=== PATIENT | male | born 1950 | race Caucasian/White ===

== ENCOUNTER → 2017-06-29 11:45 | Outpatient (CLI) | payer MEDICARE, BC ==
[~2017-06-29] VITALS: Ht 185.4 cm; Wt 88.6 kg
--- NOTE | ~2017-06-29 | HEMODYNAMI ---
PATIENT:LISA MASTERSON MEDICAL RECORD: [id number] : 48 LOCATION:[facility] ADMISSION DATE: 06/29/17 Generatedon:06/29/201715:27 Patient name: LISA MASTERSON Patient #: [id number] SSN: : 1950 Date of study: 06/29/2017 Page: Of Hemodynamic Procedure Report Patient Data Patient Demographics Procedure consent was obtained First Name: LISA Gender: Male Last Name: ALEJA : 1950 Middle Initial: H Age: 67 year(s) Patient #: [id number] Race: Unknown Additional ID: [id number] Contact details Address: [place] [address] State: [place] City: [place] Zip code: [address] Past Medical History Allergies Allergen Reaction Date Comments Reported Other allergy 06/29/2017 imdur Admission Admission Data Admission Date: 06/29/2017 Admission Time: 11:45 Lab Results Lab Result Date: 06/29/2017 Lab Result Time: 0:00 Biochemistry Name Units Result Min Max BUN mg/dl 8 --(*---)-- 7 18 Creatinine mg/dl 0.7 --(*---)-- 0.6 1.3 CBC Name Units Result Min Max Hemoglobin g/dl 14.2 --(*---)-- 13.5 17.5 Procedure Procedure Types Cath Procedure Diagnostic Procedure [facility] w/Coronaries FFR/IVUS Intra-Coronary IVUS Initial PCI Procedure PTCA PTCA Initial Miscellaneous Procedures Moderate Sedation up to 45 minutes Procedure Description Procedure Date Procedure Date: 06/29/2017 Procedure Start Time: 14:38 Procedure End Time: 15:27 Procedure Staff Name Function Quinn Berrios MD Performing Physician Eva Dejesus RT Monitor Kimberly Dang RT Scrub Omid Rod RN Nurse Fabienne Aguilar RN Nurse Eloise Chaparro RT Monitor Hiram Alfonso RT Monitor Procedure Data Cath Procedure Fluoroscopy Diagnostic fluoroscopy Total fluoroscopy Time: time: 10.8 min 10.8 min Diagnostic fluoroscopy Total fluoroscopy dose: dose: 1812 mGy 1812 mGy Contrast Material Contrast Material Type Amount (ml) Isovue 300 82 Entry Location Entry Primary Successful Side Size Upsize Upsize Entry Closure Anderson ccessful Closure Location (Fr) 1 (Fr) 2 (Fr) Remarks Device Remarks Radial Right 6 Fr Mechanical tr band artery Short Compression Estimated blood loss: 10 ml Diagnostic catheters Device Type Used For End Catheter Placement Terumo 5Fr Trae 110cm Multi-vessel catheter Angiography Procedure Complications No complications Procedure Medications Medication Administration Route Dosage Oxygen NC 2 l/min Lidocaine 2% added to field 20 Heparin Flush Bag added to field 2 bags (1000units/500ml NS) 0.9% NaCl I.V. 100 ml/hr Versed I.V. 1 mg Fentanyl I.V. 50 mcg Versed I.V. 1 mg Fentanyl I.V. 50 mcg Radial Cocktail I.A. 1 syringe (Verapomil 2mg/Nitro 400mcg/Heparin 1500units) Heparin Bolus I.V. 7000 units Versed I.V. 1 mg Versed I.V. 1 mg Heparin Bolus I.V. 2000 units Fentanyl I.V. 50 mcg Hemodynamics Rest HGB: 14.2 (g/dl) Heart Rate: 56 (bpm) Pressure Samples Time Site Value (mmHg) Purpose Heart Use Rate(bpm) 14:42 LV 144/16,32 Snapshot 77 14:43 AO 95/32(78) Pullback 95 Gradients Valve Time Site Site 2 Mean SEP/DFP Peak To Heart Use 1 (mmHg) (sec/min) Peak Rate (mmHg) (bpm) Aortic 14:43 LV AO 7 4 95 95/32(78) Calculations Valve P-P Mean Valve Index Valve Source Name Gradient Area Flow (cm2) Aortic 7 7 Snapshots Pre Cath Intra NCS Post Cath Vital Signs Time Heart Resp SPO2 etCO2 NIBP (mmHg) Rhythm Pain Sedation Rate (ipm) (%) (mmHg) Status Level (bpm) 14:24:59 58 15 100 35 133/66(106) NSR 0 (11) 10(A) , No pain 14:29:15 61 22 98 32.4 132/74(99) NSR 0 (11) 10(A) , No pain 14:33:33 64 14 98 34.6 129/69(105) NSR 0 (11) 9(A) , No pain 14:37:43 69 14 98 18.7 127/74(99) NSR 0 (11) 9(A) , No pain 14:41:59 68 14 99 28.5 133/69(92) NSR 0 (11) 9(A) , No pain 14:46:11 72 14 97 32.2 125/69(91) NSR 0 (11) 9(A) , No pain 14:50:25 70 16 97 30.7 112/72(92) NSR 0 (11) 9(A) , No pain 14:54:43 66 14 99 31.5 126/67(93) NSR 0 (11) 9(A) , No pain 14:58:59 72 15 98 31.5 126/68(104) NSR 0 (11) 9(A) , No pain 15:03:17 69 16 98 33 127/65(99) NSR 0 (11) 9(A) , No pain 15:07:35 68 16 98 31.5 123/68(90) NSR 0 (11) 9(A) , No pain 15:11:51 64 19 99 30 133/72(109) NSR 0 (11) 10(A) , No pain 15:16:01 47 16 98 21.7 124/70(116) NSR 0 (11) 9(A) , No pain 15:20:19 64 16 98 15.7 120/66(96) NSR 0 (11) 10(A) , No pain 15:24:33 59 16 98 24 124/66(97) NSR 0 (11) 10(A) , No pain Medications Time Medication Route Dose Verified Delivered Reason Note s Effectiveness by by 14:27:31 Oxygen NC 2 l/min Quinn Buffie used for Yash Rod RN procedure 14:27:38 Lidocaine 2% added 20ml Quinn Quinn for local to vial Yash Berrios MD anesthetic field 14:27:43 Heparin Flush added 2 bags Quinn Quinn used for Bag to Yash Berrios MD procedure (1000units/500ml field NS) 14:27:51 0.9% NaCl I.V. 100 Quinn Buffie Per physician ml/hr Yash Rod RN 14:29:19 Versed I.V. 1 mg Quinn Buffie for sedation Yash Rod RN 14:29:25 Fentanyl I.V. 50 mcg Quinn Buffie for sedation Yash Rod RN 14:35:18 Versed I.V. 1 mg Quinn Buffie for sedation Yash Rod RN 14:35:21 Fentanyl I.V. 50 mcg Quinn Buffie for sedation Yash Rod RN 14:41:53 Radial Cocktail I.A. 1 Quinn Quinn for (Verapomil syringe Yash Berrios MD vasodilation 2mg/Nitro 400mcg/Heparin 1500units) 14:53:51 Heparin Bolus I.V. 7000 Quinn Buffie for veri fied units Yash Rod RN anticoagulation with dr berrios 14:55:11 Versed I.V. 1 mg Quinn Buffie for sedation Yash Rod RN 15:00:27 Versed I.V. 1 mg Quinn Buffie for sedation Yash Rod RN 15:07:08 Heparin Bolus I.V. 2000 Quinn Buffie for veri fied units Yash Rod RN anticoagulation with dr berrios 15:16:24 Fentanyl I.V. 50 mcg Quinn Buffie for sedation Yash Rod RN Procedure Log Time Note 13:47:11 Informed consent obtained and on chart 13:47:16 Diagnostic Cath Status : Elective 14:07:34 Eva Dejesus RT(R) sent for patient. Start room use. 14:09:10 Time tracking: Regular hours 14:09:16 Plan of Care:Hemodynamics will remain stable., Cardiac rhythm will remain stable., Comfort level will be maintained., Respiratory function will remain adequate., Patient/ family verbilizes understanding of procedure., Procedure tolerated without complication., Recovers from procedure without complications.. 14:09:24 Patient received from Pre/Post Procedure Room to [facility] 2 Alert and oriented. Tansferred to table in Supine position. 14:23:50 Warm blankets applied, and elizabeth hugger turned on for patient comfort. 14:23:51 Correct patient and procedure confirmed by team. 14:23:51 ECG and BP/O2 sat monitors applied to patient. 14:23:52 Vital chart was started 14:23:53 Baseline sample Acquired. 14:23:57 Rhythm: sinus rhythm 14:23:59 Full Disclosure recording started 14:24:04 H&P Date Dictated: 06/29/2017 Within 30 days and on chart., H&P Addendum completed by physician on day of procedure. (MUST COMPLETE FOR ALL OUTPATIENTS). 14:24:05 Pre-procedure instructions explained to patient. 14:24:05 Pre-op teaching completed and patient verbalized understanding. 14:24:07 Family in waiting room. 14:24:11 Patient NPO since Midnight. 14:24:21 Patient allergic to Other allergyimdur 14:24:29 Is the patient allergic to Iodine/contrast media? No. 14:24:30 Was the patient premedicated? No 14:24:32 Is patient on blood thinner?Yes 14:24:36 ACC The patient was administered the following blood thiners within the last 24 hours: ACCPlavix 14:24:38 Patient diabetic? Yes. 14:24:39 If diabetic: On Metformin? No 14:24:42 Previous problem with sedation/anesthesia? No ? 14:24:44 Snore? Yes 14:24:45 Sleep apnea? Yes 14:24:46 Deviated septum? No 14:24:46 Opens mouth fully? Yes 14:24:47 Sticks out tongue? Yes 14:24:50 Airway obstruction? No ? 14:24:53 Dentures? No ? 14:24:57 Pre procedure: right dorsailis pedis pulse 1+ Palpable, but thready & weak; easily obliterated 14:24:59 Pre procedure: left dorsailis pedis pulse 1+ Palpable, but thready & weak; easily obliterated 14:25:01 Patient pain scale 0/10 ?. 14:25:08 IV patent on arrival in left forearm with 0.9% NaCl at [facility]. 14:27:31 Oxygen 2 l/min NC was administered by Omid Rod RN; used for procedure; 14:27:38 Lidocaine 2% 20ml vial added to field was administered by Quinn Berrios MD; for local anesthetic; 14:27:43 Heparin Flush Bag (1000units/500ml NS) 2 bags added to field was administered by Quinn Berrios MD; used for procedure; 14:27:51 0.9% NaCl 100 ml/hr I.V. was administered by Omid Rod RN; Per physician; 14:27:55 Lab Result : BUN 8 mg/dl 14:: Lab Result : Creatinine 0.7 mg/dl 14:: Lab Result : Hemoglobin 14.2 g/dl 14::57 Lab results completed and on chart. 14:28:01 Right Radial & Right Groin area was prepped with chlora-prep and draped in sterile fashion 14:28:02 Alarms reviewed by R. N. 14:28:03 Sharps counted by scrub and verified by R.N. 14:: Physician arrived 14:: --------ALL STOP TIME OUT------ 14::05 Final Timeout: patient, procedure, and site verified with staff and physician. All members of the team are in agreement. 14:28:07 Right Radial & Right Groin site verified by team. 14:28:10 Physical assessment completed. ASA score P 2 - A patient with mild systemic disease as per Quinn Berrios MD. 14:28:14 Sedation plan: IV Moderate Sedation Medication:Versed, Fentanyl 14:28:18 Use device set Radial Dx 14:28:19 Acist Syringe opened to sterile field. 14:28:19 Medline Cath Pack opened to sterile field. 14:28:19 Bag Decanter opened to sterile field. 14:28:20 Terumo 6Fr Slender Glidesheath opened to sterile field. 14:28:20 [place] 260cm J .035 wire opened to sterile field. 14:28:21 Acist Hand Control opened to sterile field. 14:28:21 Acist Manifold opened to sterile field. 14:28:21 Tegaderm 4 x 4 opened to sterile field. 14:28:22 MBrace Wrist Support opened to sterile field. 14:29:19 Versed 1 mg I.V. was administered by Omid Rod RN; for sedation; 14:29:25 Fentanyl 50 mcg I.V. was administered by Omid Rod RN; for sedation; 14:35:18 Versed 1 mg I.V. was administered by Omid Rod RN; for sedation; 14:35:21 Fentanyl 50 mcg I.V. was administered by Omid Rod RN; for sedation; 14:38:38 Procedure started. 14:38:46 Local anesthetic to right radial artery with Lidocaine 2% by Quinn Berrios MD.INITIAL ACCESS ONLY 14:40:51 A 6 Fr Short sheath was inserted into the Right Radial artery 14:41:09 A Terumo 5Fr Trea 110cm catheter was advanced over the wire and used for Multi-vessel Angiography. 14:41:53 Radial Cocktail (Verapomil 2mg/Nitro 400mcg/Heparin 1500units) 1 syringe I.A. was administered by Quinn Berrios MD; for vasodilation; 14:43:01 LV hemodynamics recorded. 14:43:02 LV gram done using MOSER 14:43:12 EF : 55 % 14:44:21 LCA angiography performed. 14:44:23 Injector settings: Ml/sec: 3, Volume: 6, 14:47:18 RCA angiography performed. 14:47:21 Injector settings: Ml/sec: 3, Volume: 6, 14:49:21 Catheter removed. 14:49:22 Proceeding to intervention. 14:49:57 Merit BasixCompak Inflation Kit opened to sterile field. 14:49:57 [place] IVUS Catheter opened to sterile field. 14:50:10 Cordis 6FR XBLAD 3.5 guide catheter opened to sterile field. 14:51:43 Sargent BMW [place] 2 J-tip 300cm 0.014 guide wir opened to sterile field. 14:51:55 High Pressure Extension Tubing (Yash) opened to sterile field. 14:52:08 6 Fr xblad 3.5 guide catheter was inserted over the wire 14:52:12 bmw wire advanced. 14:53:20 Wire advanced across lesion. 14:53:26 IVUS catheter advanced over wire. 14:53:51 Heparin Bolus 7000 units I.V. was administered by Omid Rod RN; for anticoagulation; verified with dr berrios 14:55:11 Versed 1 mg I.V. was administered by Omid Rod RN; for sedation; 15:00:27 Versed 1 mg I.V. was administered by Omid Rod RN; for sedation; 15:00:34 Wire redirected to diag. 15:02:07 IVUS pass to Diag lesion performed. 15:02:11 IVUS catheter removed over wire. 15:07:08 Heparin Bolus 2000 units I.V. was administered by Omid Rod RN; for anticoagulation; verified with dr berrios 15:12:01 Inflation number: 1 A [place] Sci [place] 3.0 X 12 balloon was prepped and advanced across the 1st Diag, then inflated to 14 BENI for 0:10 (min:sec). 15:13:42 Inflation number: 2 The [place] Sci [place] 3.0 X 12 balloon was reinflated across the 1st Diag, to 8 BENI for 0:00 (min:sec). 15:14:26 Inflation number: 3 The [place] Sci [place] 3.0 X 12 balloon was reinflated across the 1st Diag, to 10 BENI for 0:00 (min:sec). 15:16:24 Fentanyl 50 mcg I.V. was administered by Omid Rod RN; for sedation; 15:16:45 Balloon removed over the wire. 15:18:06 IVUS catheter advanced over wire. 15:18:16 IVUS pass to Diag lesion performed. 15:19:58 IVUS catheter removed over wire. 15:20:21 Terumo TR Band Standard opened to sterile field. 15:20:31 Wire removed. 15:21:41 Guide catheter removed. 15:22:28 Sheath removed intact; hemostasis achieved with Mechanical Compression to the Right Radial artery. 15:22:33 Procedure ended.(Physican Out) 15:22:37 Fluoroscopy time 10.80 minutes. 15:22:41 Fluoroscopy dose: 1812 mGy 15:22:41 Flurop Dose total: 1812 15:22:45 Contrast amount:Isovue 300 82ml. 15:22:47 Sharps counted by scrub and verified by R.N. 15:22:49 TR band inflated with 10cc of air. 15:22:50 Insertion/operative site no bleeding no hematoma. 15:22:52 Post Procedure Pulses reassessed and unchanged 15:22:57 Post-procedure physical assessment completed. ASA score P 2 - A patient with mild systemic disease as per Quinn Berrios MD. 15:22:59 Post procedure rhythm: unchanged. 15:23:01 Estimated blood loss: 10 ml 15:23:02 Post procedure instruction explained to patient.Patient verbalizes understanding. 15:23:03 Patient needs reinforcement of post procedure teaching. 15:23:50 Procedure type changed to Cath procedure, Diagnostic procedure, LHC, LHC w/Coronaries, FFR/IVUS, Intra-Coronary IVUS Initial, PCI procedure, PTCA, PTCA Initial, Miscellaneous Procedures, Moderate Sedation up to 45 minutes 15:26:01 Cook 21G 4cm Radial Needle opened to sterile field. 15:26:57 Procedure Complication : No complications 15::59 Procedure and supply charges have been captured, reviewed, submitted and are correct. 15:27:00 Vital chart was stopped 15:27:01 See physician's report for complete and final results. 15:27:04 Report given to Pre/Post Procedure Room. 15:27:07 Patient transfered to Pre/Post Procedure Room with Bed. 15:27:10 Procedure ended. 15:27:10 Full Disclosure recording stopped 15:27:15 End room use (Document Last) Intervention Summary Intervention Notes Time ActionType Lesion and Equipment Action# Pressure Duration Attributes Used 15:12:01 Inflate 1st Diag [place] 1 14 00:10 balloon Sci [place] 3.0 X 12 balloon 15:13:42 Reinflate 1st Diag [place] 2 8 00:00 balloon [place] 3.0 X 12 balloon 15:14:26 Reinflate 1st Diag [place] 3 10 00:00 balloon [place] 3.0 X 12 balloon Device Usage Item Name Manufacture Quantity Catalog Number Hospital Part Current Mini mal Lot# / Charge Number Stock Stock Serial# Code Acist Acist 1 [id number] 018698 016767 20 Syringe Medical Systems Inc Medline Cardinal 1 [id number] 846093 15430 957982 5 Cath Pack Health Bag Microtek 1 2002S 419600 91668 058475 5 Sensors [employer] Inc. Terumo 6Fr Terumo 1 [id number] 364060 443441 075163 [address] [facility] [employer] [facility] 1 191974 132803 232801 380146 30 260cm J .035 wire Acist Hand Acist 1 28249 732029 977624 378674 5 Control Medical Systems Inc Acist Acist 1 01897 350483 704763 891675 5 Manifold Medical Systems Inc Tegaderm 4 3M 1 1626W 019946 899240 031736 5 x 4 MBrace Advanced 1 140-0250-00 253495 57326 929880 5 Wrist Vascular Support Dynamics Terumo 5Fr Terumo 1 58-9079 659000 329396 190371 5 Trae 110cm catheter Merit Merit 1 VS2018 853209 624869 458607 15 BasixCompak Medical Inflation Kit [place] 1 [id number] 111517 384852 600109 8 [place] IVUS Catheter Cordis 6FR Cardinal 1 [id number] 163973 603310 392440 10 XBLAD 3.5 Health guide catheter Sargent BMW Sargent 1 [id number] 856127 405126 516410 5 [place] 2 Vascular J-tip 300cm 0.014 guide wir High Merit 1 [id number] 509015 29853 470260 10 Pressure Medical Extension Tubing (Berrios) [place] Sci [place] 1 [id number] 175181 971262 902078 1 [id number] Retora Black 3.0 X 12 balloon Terumo TR Terumo 1 [id number] 106383 379873 374894 40 Band Standard Cook 21G Cook Medical 1 [id number] 134201 775755 215617 5 4cm Radial Needle Signature Audit [place] Stage Time Signature Unsigned Intra-Procedure 06/29/2017 Eloise Chaparro 3:27:55 PM RT(R) Signatures Monitor : Eva Dejesus RT Signature : Date : Time : Monitor : Eloise Chaparro Signature : RT Date : Time : Monitor : Hiram Alfonso RT Signature : Date : Time : [facility] [address] [facility] [address]
[~2017-06-29 11:45] MED LIST: BAYER CHEWABLE81 MG PO; COREG 3.1253.125 MG PO; GEMFIBROZIL600 MG PO; LANOXIN125 MCG PO; LIPITOR80 MG PO; LISINOPRIL5 MG PO; MULTIPLE VITAMI1 TA1 PO; OMEPRAZOLE20 M1 PO; PLAVIX75 MG PO; WELLBUTRIN SR150 MG PO
[2017-06-29 12:19] LABS: BASOPHILS 0.1 % (0-2); EOSINOPHILS 4.4 % (0-7); HEMATOCRIT 41.5 % (42.0-54.0); HEMOGLOBIN 14.2 g/dL (13.5-17.5); IMMATURE GRANULOCYTES 0.1 % (0-5); LYMPHOCYTES 20.4 % (15-50); MCH 33.8 pg (26.0-34.0); MCHC 34.2 g/dL (31.0-37.0); MCV 98.8 fL (80.0-100.0); MEAN PLATELET VOLUME 9.2 fL (7.4-10.4); MONOCYTES 8.8 % (2-11); NEUTROPHILS 66.2 % (40-80); PLATELET COUNT 154 10x3/uL (130-400); RDW 12.5 % (11.5-14.5)
[2017-06-29 12:26] VITALS: BP 144/64; Ht 185.4 cm; Wt 88.6 kg
[2017-06-29 12:35] LABS: CALC OSMOLALITY 277 mosm/kg (275-300); CHLORIDE - SERUM 104 mmol/L (98-107); CREATININE - SERUM 0.7 mg/dL (0.6-1.3); GLUCOSE 110 mg/dL (74-106); POTASSIUM - SERUM 4.1 mmol/L (3.5-5.1); SODIUM 140 mmol/L (136-145); UREA NITROGEN 8 mg/dL (7-18); eGFR NON AFRICAN AMERICAN > 90 mL/min (90-120)
--- NOTE | 2017-06-29 15:30 | NUR ---
1530 RECIEVED TO ROOM VIA STRETCHER FROM MOBILE DEVELOPMENT MANAGER WITH REPORTS OF BALLOON TO THE DIAG. VSS WITH CHEST PAIN DENIED TR BAND TO R/WRIST CDI NO BLEEDING NO HEMATOMA NOTED 1548 DR SHIELDS PRESENT IN ROOM WITH PATIENT AND TR BAND TO R/WRIST REMAINS CDI
--- NOTE | 2017-06-29 16:00 | NUR ---
1600 VSS WITH NO DISTRESS NOTED. TR BAND REMAINS TO R/WRIST CDI NO BLEEDING NO HEMATOMA NOTED. FAMILY AT BEDSIDE
--- NOTE | 2017-06-29 16:18 | NUR ---
REPOSITIONED TO SITTING WITH HOB UP 30 DEGREES. TR BAND TO R/WRIST CDI NO BLEEDING NO HEMATOMA NOTED. SANDWICH AND SODA TO BEDSIDE
--- NOTE | 2017-06-29 16:45 | NUR ---
8005 RESTING QUIETLY WITH FAMILY AT SIDE NO CHANGE IN ASSESSMENT
--- NOTE | 2017-06-29 17:23 | NUR ---
PATIENT CONTINUES TO SLEEP WITH NO DISTRESS TR BAND REMAINS TO R/WRIST CDI NO BLEEDING NO HEMATOMA NOTED
--- NOTE | 2017-06-29 17:53 | NUR ---
TR BAND REMAINS IN PLACE WITH NO BLEEDING NO HEMATOMA NOTED. CHEST PAIN IS DENIED.
--- NOTE | 2017-06-29 18:08 | NUR ---
4 CC AIR REMOVED FROM TR BAND WITH NO BLEEDING NO HEMATOMA NOTED.
--- NOTE | 2017-06-29 18:35 | NUR ---
VERBAL AND WRITTEN DISCHARGE GONE OVER WITH PATIENT AND FAMILY ALL VERBALIZED UNDERSTANDING. 2 CC AIR REMOVED FROM TR BAND WITH NO BLEEDING NOTED
--- NOTE | 2017-06-29 18:47 | NUR ---
2 CC AIR REMOVED FROM TR BAND WITH NO BLEEDING NO HEMATOMA NOTED. PIV REMOVED WITH DRESSING APPLIED. PATIENT DENIED CHEST PAIN OR DISTRSS HE SITS TO BEDSIDE. PRESENT TO ASSIST WITH CLOTHING
--- NOTE | 2017-06-29 19:09 | NUR ---
TR BAND REMOVED WITH DRESSING APPLIED. NO BLEEDING NO HEMATOMA NOTED. CHEST PAIN IS DENIED. PATIENT TRANSPORTED TO PARKING FOR TO DRIVE HOME NO DISTRESS
== END | disposition home or self-care (01) ==
LOC: D.CATH 11:45
PROVIDERS: Internal Medicine Cardiovascular Disease
DX: I25.119 Atherosclerotic heart disease of native coronary artery with unspecified angina pectoris (principal); T82.855A Stenosis of coronary artery stent, initial encounter; R94.39 Abnormal result of other cardiovascular function study; Z01.812 Encounter for preprocedural laboratory examination

== ENCOUNTER → 2018-02-18 07:06 | Outpatient (CLI) | payer MEDICARE, BC ==
[~2018-02-18] VITALS: Ht 185.4 cm; Wt 87.7 kg
--- NOTE | ~2018-02-18 | HEMODYNAMI ---
PATIENT:LISA MASTERSON MEDICAL RECORD: [id number] : 48 LOCATION:[facility] ADMISSION DATE: 02/18/18 Generatedon:02/18/20189:18 Patient name: LISA MASTERSON Patient #: [id number] SSN: : 1950 Date of study: 02/18/2018 Page: Of Hemodynamic Procedure Report Patient Data Patient Demographics Procedure consent was obtained First Name: LISA Gender: Male Last Name: ALEJA : 1950 Middle Initial: H Age: 67 year(s) Patient #: [id number] Race: Unknown Additional ID: [id number] Contact details Address: [place] [address] State: [place] City: [place] Zip code: [address] Past Medical History Allergies Allergen Reaction Date Comments Reported Other allergy 06/29/2017 imdur Other allergy 02/18/2018 [facility] Admission Admission Data Admission Date: 02/18/2018 Admission Time: 7:06 Admit Source: Other Lab Results Lab Result Date: 02/18/2018 Lab Result Time: 7:45 Biochemistry Name Units Result Min Max BUN mg/dl 11 --(-*--)-- 7 18 Creatinine mg/dl 0.9 --(-*--)-- 0.6 1.3 CBC Name Units Result Min Max Hematocrit % 40.8 -*(----)-- 42 54 Hemoglobin g/dl 14 --(*---)-- 13.5 17.5 Procedure Procedure Types Cath Procedure Diagnostic Procedure LHC LHC w/Coronaries Procedure Description Procedure Date Procedure Date: 02/18/2018 Procedure Start Time: 9:01 Procedure End Time: 9:17 Procedure Staff Name Function Quinn Berrios MD Performing Physician Umberto Quinones RT Monitor Eva Dejesus RT Scrub Antonio Rice RN Nurse Procedure Data Cath Procedure Fluoroscopy Diagnostic fluoroscopy Total fluoroscopy Time: 2 time: 2 min min Diagnostic fluoroscopy Total fluoroscopy dose: 435 dose: 435 mGy mGy Contrast Material Contrast Material Type Amount (ml) Isovue 300 60 Entry Location Entry Primary Successful Side Size Upsize Upsize Entry Closure Anderson ccessful Closure Location (Fr) 1 (Fr) 2 (Fr) Remarks Device Remarks Radial Right 6 Fr Mechanical artery Short Compression Estimated blood loss: 5 ml Diagnostic catheters Device Type Used For End Catheter Placement DIAGNOSTIC Trae 110cm Procedure 5Fr catheter ([id number]) Procedure Complications No complications Procedure Medications Medication Administration Route Dosage Oxygen etCO2 Nasal cannula 2 l/min Heparin Flush Bag added to field 2 bags (1000units/500ml NS) 0.9% NaCl I.V. 100 ml/hr Radial Cocktail added to field 1 syringe (Verapomil 2mg/Nitro 400mcg/Heparin 1500units) Fentanyl I.V. 50 mcg Versed I.V. 1 mg Radial Cocktail I.A. 1 syringe (Verapomil 2mg/Nitro 400mcg/Heparin 1500units) Hemodynamics Rest HGB: 14 (g/dl) Heart Rate: 63 (bpm) Pressure Samples Time Site Value (mmHg) Purpose Heart Use Rate(bpm) 9:04 LV 76/0,6 Snapshot 96 Gradients Valve Time Site Site Mean SEP/DFP Peak To Heart Use 1 2 (mmHg) (sec/min) Peak Rate (mmHg) (bpm) Aortic 9:05 LV AO 91 Snapshots Pre Cath Intra NCS Post Cath Vital Signs Time Heart Resp SPO2 etCO2 NIBP Rhythm Pain Sedation Rate (ipm) (%) (mmHg) (mmHg) Status Level (bpm) 8:44:42 66 17 0 132/68(91) NSR 0 (11) 10(A) , No pain 8:48:27 70 16 95 24.7 113/71(90) NSR 0 (11) 10(A) , No pain 8:53:09 71 17 94 0 121/66(81) NSR 0 (11) 10(A) , No pain 8:57:17 69 16 94 3 108/70(86) NSR 0 (11) 9(A) , No pain 9:01:25 68 17 92 0.7 105/63(82) NSR 0 (11) 9(A) , No pain 9:05:19 75 17 95 7.5 83/49(62) NSR 0 (11) 9(A) , No pain 9:09:08 72 17 90 0 87/49(71) NSR 0 (11) 9(A) , No pain 9:12:00 66 16 95 9 89/53(70) NSR 0 (11) 9(A) , No pain 9:15:47 69 15 97 6 84/54(68) NSR 0 (11) 9(A) , No pain Medications Time Medication Route Dose Verified Delivered Reason Notes Effectiveness by by 8:43:47 Oxygen etCO2 2 l/min Quinn Antonio Per Nasal Yash Rice RN physician cannula 8:43:54 Heparin Flush added 2 bags Quinn Antonio used for Bag to Yash Rice RN procedure (1000units/500ml field NS) 8:44:09 0.9% NaCl I.V. 100 Quinn Antonio Per ml/hr Yash Riec RN physician 8:44:21 Radial Cocktail added 1 Quinn Antonio used for (Verapomil to syringe Yash Rice RN procedure 2mg/Nitro field 400mcg/Heparin 1500units) 8:55:30 Fentanyl I.V. 50 mcg Quinn Antonio for sedation Yash Rice RN 8:55:36 Versed I.V. 1 mg Quinn Antonio for sedation Yash Rice RN 9:03:41 Radial Cocktail I.A. 1 Quinn Antonio for (Verapomil syringe Yash Rice RN vasodilation 2mg/Nitro 400mcg/Heparin 1500units) Procedure Log Time Note 8:03:10 Informed consent obtained and on chart 8:03:12 Admit Source: Other 8:03:28 Diagnostic Cath status Elective 8:03:29 Time tracking: Regular hours (M-F 7:00 - 5:00) 8:03:32 Plan of Care:Hemodynamics will remain stable., Cardiac rhythm will remain stable., Comfort level will be maintained., Respiratory function will remain adequate., Patient/ family verbilizes understanding of procedure., Procedure tolerated without complication., Recovers from procedure without complications.. 8:03:45 H&P Date Dictated: 02/05/2018 Within 30 days and on chart., H&P Addendum completed by physician on day of procedure. (MUST COMPLETE FOR ALL OUTPATIENTS). 8:20:58 Antonio Rice RN sent for patient. Start room use. 8:38:49 Patient received from Pre/Post Procedure Room to CCL 2 Alert and oriented. Tansferred to table in Supine position. 8:38:51 Warm blankets applied, and elizabeth hugger turned on for patient comfort. 8:38:51 Correct patient and procedure confirmed by team. 8:38:53 Pre-procedure instructions explained to patient. 8:38:53 Pre-op teaching completed and patient verbalized understanding. 8:38:54 Family in waiting room. 8:38:56 Patient NPO since Midnight. 8:39:14 Patient allergic to Other allergyIMDUR 8:39:16 Is the patient allergic to Iodine/contrast media? No. 8:43:32 Vital chart was started 8:43:47 Oxygen 2 l/min etCO2 Nasal cannula was administered by Antonio Rice RN; Per physician; 8:43:54 Heparin Flush Bag (1000units/500ml NS) 2 bags added to field was administered by Antonio Rice RN; used for procedure; 8:44:09 0.9% NaCl 100 ml/hr I.V. was administered by Antonio Rice RN; Per physician; 8:44:16 Is patient on blood thinner?Yes 8:44:18 ACC The patient was administered the following blood thiners within the last 24 hours: ACCPlavix 8:44:20 Patient diabetic? No. 8:44:21 Radial Cocktail (Verapomil 2mg/Nitro 400mcg/Heparin 1500units) 1 syringe added to field was administered by Antonio Rice RN; used for procedure; 8:44:41 Previous problem with sedation/anesthesia? No ? 8:44:42 Snore? Yes 8:44:43 Sleep apnea? Yes 8:44:44 Deviated septum? No 8:44:46 Opens mouth fully? Yes 8:44:46 Sticks out tongue? Yes 8:44:47 Airway obstruction? No ? 8:44:50 Dentures? No ? 8:44:55 Modified Jitendra's test Ulnar < 7 seconds 8:44:57 Patient pain scale 0/10 ?. 8:45:11 IV patent on arrival in left antecubital with 0.9% NaCl at [facility]. 8:45:40 Lab Result : BUN 11 mg/dl 8:45:40 Lab Result : Creatinine 0.9 mg/dl 8:45:40 Lab Result : Hemoglobin 14 g/dl 8:45:40 Lab Result : Hematocrit 40.8 % 8:45:42 Lab results completed and on chart. 8:45:44 Right Radial & Right Groin area was prepped with chlora-prep and draped in sterile fashion 8:45:44 Alarms reviewed by R. N. 8:45:45 Sharps counted by scrub and verified by R.N. 8:45:47 Use device set Radial Dx or PCI 8:45:48 ACIST Syringe (30004) opened to sterile field. 8:45:49 Medline Cath Pack ([id number]) opened to sterile field. 8:45:49 Bag Decanter (2002S) opened to sterile field. 8:45:50 ACIST Hand Control (17379) opened to sterile field. 8:45:51 ACIST Manifold (69517) opened to sterile field. 8:45:51 Tegaderm 4 x 4 (1626W) opened to sterile field. 8:45:52 MBrace Wrist Support ([id number]) opened to sterile field. 8:45:53 SHEATH 6Fr Prelude Radial ([id number]) opened to sterile field. 8:45:54 DIAGNOSTIC WIRE .035 260cm J wire (769721) opened to sterile field. 8:46:01 Baseline sample Acquired. 8:46:04 Rhythm: sinus rhythm 8:46:05 Full Disclosure recording started 8:55:03 Physician arrived 8:55:03 --------ALL STOP TIME OUT------ 8:55:04 Final Timeout: patient, procedure, and site verified with staff and physician. All members of the team are in agreement. 8:55:05 Right Radial & Right Groin site verified by team. 8:55:07 Physical assessment completed. ASA score P 2 - A patient with mild systemic disease as per Quinn Berrios MD. 8:55:11 Sedation plan: IV Moderate Sedation Medication:Versed, Fentanyl 8:55:30 Fentanyl 50 mcg I.V. was administered by Antonio Rice RN; for sedation; 8:55:36 Versed 1 mg I.V. was administered by Antonio Rice RN; for sedation; 9:00:48 Zero performed for pressure channel P1 9:01:25 Procedure started. 9:01:31 Local anesthetic to right radial artery with Lidocaine 2% by Quinn Berrios MD.INITIAL ACCESS ONLY 9:02:45 A 6 Fr Short sheath was inserted into the Right Radial artery 9:03:41 Radial Cocktail (Verapomil 2mg/Nitro 400mcg/Heparin 1500units) 1 syringe I.A. was administered by Antonio Rice RN; for vasodilation; 9:03:48 A DIAGNOSTIC Trae 110cm 5Fr catheter ([id number]) was advanced over the wire and used for Procedure. 9:04:37 LV gram done using MOSER 9:04:42 Injector settings: Ml/sec: 5, Volume: 15, 9:04:49 EF : 55 % 9:06:16 RCA angiography performed. 9:07:02 LCA angiography performed. 9:08:32 Catheter removed. 9:08:35 TR BAND Standard ([id number]) opened to sterile field. 9:08:45 Sheath removed intact; hemostasis achieved with Mechanical Compression to the Right Radial artery. 9:08:46 Procedure ended.(Physican Out) 9:12:31 Fluoroscopy time 02.00 minutes. 9:12:44 Fluoroscopy dose: 435 mGy 9:12:44 Flurop Dose total: 435 9:12:54 Contrast amount:Isovue 300 60ml. 9:12:55 Sharps counted by scrub and verified by R.N. 9:13:03 TR band inflated with 12cc of air. 9:13:04 Insertion/operative site no bleeding no hematoma. 9:13:11 Post right radial artery:stable, soft, clean and dry 9:13:12 Post Procedure Pulses reassessed and unchanged 9:13:15 Post-procedure physical assessment completed. ASA score P 2 - A patient with mild systemic disease as per Quinn Berrios MD. 9:13:18 Post procedure rhythm: unchanged. 9:13:38 Estimated blood loss: 5 ml 9:13:40 Post procedure instruction explained to patient.Patient verbalizes understanding. 9:13:41 Patient needs reinforcement of post procedure teaching. 9:17:03 Procedure and supply charges have been captured, reviewed, submitted and are correct. 9:17:06 Procedure Complication : No complications 9:17:09 Vital chart was stopped 9:17:11 See physician's report for complete and final results. 9:17:14 Report given to Pre/Post Procedure Room. 9:17:16 Patient transfered to Pre/Post Procedure Room with Stretcher. 9:17:17 Procedure ended. 9:17:17 Full Disclosure recording stopped 9:17:34 End room use (Document Last) Device Usage Item Name Manufacture Quantity Catalog Number Hospital Part Current M inimal Lot# / Charge Number Stock Stock Serial# Code ACIST Syringe Acist 1 35832 119835 634527 [id number] 2 0 (15082) [employer] Medline Cath Cardinal 1 [id number] 311923 96758 041703 5 Pack Health ([id number]) Bag Decanter Microtek 1 2001S 172812 75825 602691 5 (2001S) Medical Inc. ACIST Hand Acist 1 26565 803751 355490 223016 5 Control (81999) [employer] ACIST Manifold Acist 1 64509 153360 887743 356574 5 (62809) [employer] Tegaderm 4 x 4 3M 1 1626W 720278 613532 848500 5 (1626W) MBrace Wrist Advanced 1 140-0250-00 126780 48075 093160 5 Support Vascular ([id number]) Dynamics SHEATH 6Fr Merit 1 [id number] 811226 911113 510713 5 Prelude Radial Medical ([id number]) DIAGNOSTIC WIRE [place] 1 154835 992631 373017 669502 3 0 .035 260cm J wire (442725) DIAGNOSTIC Terumo 1 40-2615 681162 334300 551007 5 Trae 110cm 5Fr catheter (475245) TR BAND Terumo 1 [id number] 191024 742608 966810 4 0 Standard ([id number]) Signature Audit [place] Stage Time Signature Unsigned Intra-Procedure 02/18/2018 Umberto Quinones 9:17:51 AM RT(R) Signatures Monitor : Umberto Quinones RT Signature : Date : Time : [facility] [address] [place] [address]
[~2018-02-18 07:06] MED LIST changes: +ASCORBIC ACID500 MG PO; +FISH OIL 1,2001 CAP PO
[2018-02-18 07:53] LABS: BASOPHILS 0.2 % (0-2); EOSINOPHILS 6.4 % (0-7); HEMATOCRIT 40.8 % (42.0-54.0); LYMPHOCYTES 18.3 % (15-50); MCH 33.9 pg (26.0-34.0); MCHC 34.3 g/dL (31.0-37.0); MCV 98.8 fL (80.0-100.0); MEAN PLATELET VOLUME 9.2 fL (7.4-10.4); MONOCYTES 12.3 % (2-11); NEUTROPHILS 62.8 % (40-80); RBC 4.13 10x6/uL (4.20-6.10); RDW 12.3 % (11.5-14.5); WBC 5.1 10x3/uL (4.8-10.8)
[2018-02-18 07:54] LABS: PLATELET COUNT 117 10x3/uL (130-400)
[2018-02-18 07:55] VITALS: BP 139/73; Ht 185.4 cm; Wt 87.7 kg
[2018-02-18 08:04] LABS: CALC OSMOLALITY 275 mosm/kg (275-300); CALCIUM 9.4 mg/dL (8.5-10.1); CARBON DIOXIDE 26.2 mmol/L (21.0-32.0); CHLORIDE - SERUM 104 mmol/L (98-107); CREATININE - SERUM 0.9 mg/dL (0.6-1.3); GLUCOSE 121 mg/dL (74-106); POTASSIUM - SERUM 4.1 mmol/L (3.5-5.1); SODIUM 138 mmol/L (136-145); UREA NITROGEN 11 mg/dL (7-18); eGFR NON AFRICAN AMERICAN 89 mL/min (90-120)
== END | disposition home or self-care (01) ==
LOC: D.CATH 07:06
PROVIDERS: Internal Medicine Cardiovascular Disease
DX: I25.119 Atherosclerotic heart disease of native coronary artery with unspecified angina pectoris (principal); Z95.5 Presence of coronary angioplasty implant and graft; Z01.812 Encounter for preprocedural laboratory examination

== ENCOUNTER 2018-09-27 16:07 | Observation (INO) | payer MEDICARE, BC ==
[~2018-09-27] VITALS: Ht 185.4 cm; Wt 89.1 kg
[2018-09-27] VITALS (7 sets, daily range): BP systolic 106–143; BP diastolic 59–71; BMI 26.4
--- NOTE | ~2018-09-27 | HEMODYNAMI ---
PATIENT:LISA MASTERSON MEDICAL RECORD: [id number] : 48 [id number] ADMISSION DATE: 09/27/18 Generatedon:09/28/201816:45 Patient name: LISA MASTERSON Patient #: [id number] SSN: : 1950 Date of study: 09/28/2018 Page: Of Hemodynamic Procedure Report Patient Data Patient Demographics Procedure consent was obtained First Name: LISA Gender: Male Last Name: ALEJA : 1950 Middle Initial: H Age: 68 year(s) Patient #: [id number] Race: Unknown Additional ID: [id number] Contact details Address: [place] [address] State: [place] City: [place] Zip code: [address] Past Medical History Allergies Allergen Reaction Date Comments Reported Other allergy 06/29/2017 imdur Other allergy 02/18/2018 IMDUR Admission Admission Data Admission Date: 09/27/2018 Admission Time: 18:20 Room #: D.2119 Lab Results Lab Result Date: 09/28/2018 Lab Result Time: 0:00 Biochemistry Name Units Result Min Max BUN mg/dl 9 --(*---)-- 7 18 Creatinine mg/dl 0.9 --(-*--)-- 0.6 1.3 CBC Name Units Result Min Max Hemoglobin g/dl 14.5 --(*---)-- 13.5 17.5 Procedure Procedure Types Cath Procedure Diagnostic Procedure LHC LHC w/Coronaries Procedure Description Procedure Date Procedure Date: 09/28/2018 Procedure Start Time: 16:36 Procedure End Time: 16:43 Procedure Staff Name Function Frederic Odom MD Performing Physician Eloise Chaparro RT Monitor Umberto Quinones RT Scrub Christopher Rodrgiuez RN Nurse Procedure Data Cath Procedure Fluoroscopy Diagnostic fluoroscopy Total fluoroscopy Time: 0.8 time: 0.8 min min Diagnostic fluoroscopy Total fluoroscopy dose: 346 dose: 346 mGy mGy Contrast Material Contrast Material Type Amount (ml) Isovue 300 45 Entry Location Entry Primary Successful Side Size Upsize Upsize Entry Closure Anderson ccessful Closure Location (Fr) 1 (Fr) 2 (Fr) Remarks Device Remarks Radial Right 6 Fr Mechanical artery Short Compression Estimated blood loss: 5 ml Diagnostic catheters Device Type Used For End Catheter Placement DIAGNOSTIC Inez 110cm 5 Procedure Fr catheter ([id number]) Procedure Complications No complications Procedure Medications Medication Administration Route Dosage 0.9% NaCl I.V. 100 ml/hr Oxygen etCO2 Nasal cannula 2 l/min Heparin Flush Bag added to field 2 bags (1000units/500ml NS) Lidocaine 2% added to field 20 Radial Cocktail added to field 1 syringe (Verapomil 2mg/Nitro 400mcg/Heparin 1500units) Radial Cocktail I.A. 1 syringe (Verapomil 2mg/Nitro 400mcg/Heparin 1500units) Versed I.V. 1 mg Fentanyl 50 mcg Hemodynamics Rest HGB: 14.5 (g/dl) Heart Rate: 65 (bpm) Snapshots Pre Cath Intra NCS Post Cath Vital Signs Time Heart Resp SPO2 etCO2 NIBP Rhythm Pain Sedation Rate (ipm) (%) (mmHg) (mmHg) Status Level (bpm) 16:30:00 61 18 99 0 131/84(98) NSR 0 (11) 10(A) , No pain 16:34:10 63 17 98 0 121/76(90) NSR 0 (11) 10(A) , No pain 16:38:18 70 15 98 0 114/71(83) NSR 0 (11) 10(A) , No pain 16:42:23 68 16 96 0 111/64(79) NSR 0 (11) 9(A) , No pain Medications Time Medication Route Dose Verified Delivered Reason Notes Effectiveness by by 16:35:44 0.9% NaCl I.V. 100 Christopher Christopher Per ml/hr Jennifer Rodriguez physician RN RN 16:35:53 Oxygen etCO2 2 l/min Christopher Christopher for low 02 Nasal Lorigan Lorigan sats cannula RN RN 16:36:02 Heparin Flush added 2 bags Christopher Christopher used for Bag to Jennifer Rodriguez procedure (1000units/500ml field RN RN NS) 16:36:12 Lidocaine 2% added 20ml Christopher Christopher for local to vial Lorigan Lorigan anesthetic field RN RN 16:36:23 Radial Cocktail added 1 Christopher Christopher used for (Verapomil to syringe Jennifer Rodriguez procedure 2mg/Nitro field WOMACK RN 400mcg/Heparin 1500units) 16:38:37 Radial Cocktail I.A. 1 Christopher Frederic for (Verapomil syringe Jennifer Odom MD vasodilation 2mg/Nitro RN 400mcg/Heparin 1500units) 16:38:46 Versed I.V. 1 mg Christopher Christopher for sedation Jennifer Rodriguez RN, RN 16:38:55 Fentanyl 50 mcg Christopher Christopher for sedation Jennifer Rodriguez RN, RN Procedure Log Time Note 16:09:31 Christopher Rodriguez RN sent for patient. Start room use. 16:09:32 Diagnostic Cath status Elective 16:09:33 Signed procedure consent form obtained from patient. 16:09:34 Time tracking: Regular hours (M-F 7:00 - 5:00) 16:09:37 Plan of Care:Hemodynamics will remain stable., Cardiac rhythm will remain stable., Comfort level will be maintained., Respiratory function will remain adequate., Patient/ family verbilizes understanding of procedure., Procedure tolerated without complication., Recovers from procedure without complications.. 16:11:09 H&P Date Dictated: 09/28/2018 Emergent; H&P N/A. 16:12:08 Lab Result : BUN 9 mg/dl 16:12:08 Lab Result : Creatinine 0.9 mg/dl 16:12:08 Lab Result : Hemoglobin 14.5 g/dl 16:23:02 Patient received from Med II to CCL 2 Alert and oriented. Tansferred to table in Supine position. 16:23:03 Warm blankets applied, and elizabeth hugger turned on for patient comfort. 16:23:03 Correct patient and procedure confirmed by team. 16:23:04 ECG and BP/O2 sat monitors applied to patient. 16:25:02 Full Disclosure recording started 16:25:47 Pre-procedure instructions explained to patient. 16:25:48 Pre-op teaching completed and patient verbalized understanding. 16:25:50 Family in patients room. 16:25:52 Patient NPO since Midnight. 16:26:14 Is patient on blood thinner?Yes 16:26:16 ACC The patient was administered the following blood thiners within the last 24 hours: ACCPlavix 16:26:18 Patient diabetic? Yes. 16:26:19 If diabetic: On Metformin? Yes 16:26:20 If on Metformin: Last Dose? 09/27/2018 16:26:30 Previous problem with sedation/anesthesia? No ? 16:26:36 Snore? Yes 16:26:37 Sleep apnea? Yes 16:26:39 Deviated septum? No 16:26:40 Opens mouth fully? Yes 16:26:41 Sticks out tongue? Yes 16:26:44 Airway obstruction? No ? 16:26:47 Dentures? No ? 16:27:20 Pre procedure: right dorsailis pedis pulse 2+ Normal; easily identifiable; not easily obliterated 16:27:38 Modified Jitendra's test Radial < 7 seconds 16:27:40 Patient pain scale 0/10 ?. 16:28:35 IV patent on arrival in right forearm with 0.9% NaCl at [facility]. 16:28:43 Lab results completed and on chart. 16:28:50 Right Radial & Right Groin area was prepped with chlora-prep and draped in sterile fashion 16:28:51 Alarms reviewed by R. N. 16:28:51 Sharps counted by scrub and verified by R.N. 16:28:55 Vital chart was started 16:28:58 Rhythm: sinus rhythm 16:32:10 Baseline sample Acquired. 16:32:14 --------ALL STOP TIME OUT------ 16:32:14 Final Timeout: patient, procedure, and site verified with staff and physician. All members of the team are in agreement. 16:32:16 Right Radial & Right Groin site verified by team. 16:32:19 Fire Safety Assessment: A--An alcohol-based skin anteseptic being used preoperatively., C--Open oxygen or nitrous oxide is being used., D--An ESU, laser, or fiber-optic light is being used. 16:32:24 Physical assessment completed. ASA score P 2 - A patient with mild systemic disease as per Frederic Odom MD. 16:32:27 Sedation plan: IV Moderate Sedation Medication:Versed, Fentanyl 16:33:53 Use device set Radial Dx or PCI 16:33:54 ACIST Syringe (65602) opened to sterile field. 16:33:55 Bag Decanter (2001S) opened to sterile field. 16:33:55 DIAGNOSTIC WIRE .035 260cm J wire (535551) opened to sterile field. 16:33:58 ACIST Hand Control (28872) opened to sterile field. 16:33:59 ACIST Manifold (47672) opened to sterile field. 16:33:59 Tegaderm 4 x 4 (1626W) opened to sterile field. 16:34:01 Medline Cath Pack ([id number]) opened to sterile field. 16:34:01 MBrace Wrist Support ([id number]) opened to sterile field. 16:34:02 SHEATH 6FR Slender (56-4537) opened to sterile field. 16:35:44 0.9% NaCl 100 ml/hr I.V. was administered by Christopher Rodriguez RN; Per physician; 16:35:53 Oxygen 2 l/min etCO2 Nasal cannula was administered by Christopher Rodriguez RN; for low 02 sats; 16:36:02 Heparin Flush Bag (1000units/500ml NS) 2 bags added to field was administered by Christopher Rodriguez RN; used for procedure; 16:36:12 Lidocaine 2% 20ml vial added to field was administered by Christopher Rodriguez RN; for local anesthetic; 16:36:23 Radial Cocktail (Verapomil 2mg/Nitro 400mcg/Heparin 1500units) 1 syringe added to field was administered by Christopher Rodriguez RN; used for procedure; 16:36:26 Zero performed for pressure channel P1 16:36:33 Procedure started. 16:36:35 Zero performed for pressure channel P1 16:36:52 Local anesthetic to right radial artery with Lidocaine 2% by Frederic Odom MD.INITIAL ACCESS ONLY 16:37:35 A 6 Fr Short sheath was inserted into the Right Radial artery 16:37:59 A DIAGNOSTIC Inez 110cm 5 Fr catheter (466312) was advanced over the wire and used for Procedure. 16:38:33 LV gram done using MOSER 16:38:35 Injector settings: Ml/sec: 5, Volume: 15, 16:38:37 Radial Cocktail (Verapomil 2mg/Nitro 400mcg/Heparin 1500units) 1 syringe I.A. was administered by Frederic Odom MD; for vasodilation; 16:38:46 Versed 1 mg I.V. was administered by Christopher Rodriguez RN; for sedation; 16:38:55 Fentanyl 50 mcg was administered by Christopher Rodriguez RN; for sedation; 16:39:05 EF : 60 % 16:39:26 RCA angiography performed. 16:40:01 LCA angiography performed. 16:40:29 Catheter removed. 16:40:37 TR BAND Standard (RIN95ADE) opened to sterile field. 16:40:49 Procedure ended.(Physican Out) 16:41:02 Sheath removed intact; hemostasis achieved with Mechanical Compression to the Right Radial artery. 16:41:08 Fluoroscopy time 00.80 minutes. 16:41:13 Flurop Dose total: 346 16:41:13 Fluoroscopy dose: 346 mGy 16:41:17 Contrast amount:Isovue 300 45ml. 16:41:19 TR band inflated with 8cc of air. 16:41:22 Post-procedure physical assessment completed. ASA score P 2 - A patient with mild systemic disease as per Frederic Odom MD. 16:41:24 Post procedure rhythm: sinus rhythm 16:41:26 Estimated blood loss: 5 ml 16:41:27 Post procedure instruction explained to patient.Patient verbalizes understanding. 16:41:28 Patient needs reinforcement of post procedure teaching. 16:42:48 Procedure and supply charges have been captured, reviewed, submitted and are correct. 16:42:50 Procedure Complication : No complications 16:42:52 Vital chart was stopped 16:42:53 See physician's report for complete and final results. 16:42:55 Report given to [facility]. 16:42:58 Patient transfered to [facility] with Bed. 16:43:00 Procedure ended. 16:43:00 Full Disclosure recording stopped 16:43:03 End room use (Document Last) Device Usage Item Name Manufacture Quantity Catalog Hospital Part Current Minimal Lot# / Number Charge Number Stock Stock Serial# Code ACIST Acist 1 06125 080992 904213 [id number] 20 Syringe Medical (98931) Systems Inc Bag Microtek 1 344882 25480 287631 5 Decanter Medical Inc. () DIAGNOSTIC [place] 1 442102 910745 957466 716137 30 WIRE .035 260cm J wire (565738) ACIST Hand Acist 1 77875 402435 310432 033339 5 Control Medical (31474) Systems Inc ACIST Acist 1 73845 469751 999529 052802 5 Manifold Medical (10368) Systems Inc Tegaderm 4 3M 1 1626W 670639 064434 006990 5 x 4 (1626W) Medline Medline 1 [id number] 932645 39819 102258 5 Cath Pack ([id number]) MBrace Advanced 1 140-0250-00 646434 57816 218849 5 Wrist Vascular Support Dynamics ([id number]) SHEATH 6FR Terumo 1 [id number] 183109 800279 381851 5 Slender (801060) DIAGNOSTIC Terumo 1 40-5151 811453 231545 449266 5 Inez 110cm 5 Fr catheter (036253) TR BAND Terumo 1 [id number] 894823 056922 088784 40 Standard ([id number]) Signature Audit Drain Stage Time Signature Unsigned Intra-Procedure 09/28/2018 Eloise Chaparro 4:45:38 PM RT(R) Signatures Monitor : Eloise Chaparro Signature : RT Date : Time : [place] [id number] [place] [address]
[2018-09-27 16:30] LABS: BASOPHILS 0.1 % (0-2); EOSINOPHILS 1.6 % (0-7); HEMATOCRIT 41.4 % (42.0-54.0); HEMOGLOBIN 14.5 g/dL (13.5-17.5); IMMATURE GRANULOCYTES 0.3 % (0-5); LYMPHOCYTES 18.9 % (15-50); MCH 33.7 pg (26.0-34.0); MCV 96.3 fL (80.0-100.0); MEAN PLATELET VOLUME 8.9 fL (7.4-10.4); MONOCYTES 7.4 % (2-11); NEUTROPHILS 71.7 % (40-80); RDW 12.6 % (11.5-14.5); WBC 6.9 10x3/uL (4.8-10.8)
[2018-09-27 16:38] LABS: PLATELET COUNT 143 10x3/uL (130-400)
[2018-09-27 16:44] LABS: ALBUMIN 3.6 g/dL (3.4-5.0); ALKALINE PHOSPHATASE 104 U/L (46-116); ALT (SGPT) 25 U/L (10-68); CALC OSMOLALITY 273 mosm/kg (275-300); CALCIUM 8.9 mg/dL (8.5-10.1); CHLORIDE - SERUM 102 mmol/L (98-107); CREATININE - SERUM 0.9 mg/dL (0.6-1.3); GLUCOSE 125 mg/dL (74-106); POTASSIUM - SERUM 3.7 mmol/L (3.5-5.1); PROTEIN - SERUM 7.3 g/dL (6.4-8.2); SODIUM 137 mmol/L (136-145); UREA NITROGEN 10 mg/dL (7-18); eGFR NON AFRICAN AMERICAN 89 mL/min (90-120)
[2018-09-27 18:44] LABS: CREATINE KINASE 54 UL (21-232); MAGNESIUM - SERUM 1.7 mg/dL (1.8-2.4)
[2018-09-27 18:48] LABS: TROPONIN-I < 0.017 ng/mL (0.000-0.060)
--- NOTE | 2018-09-27 19:00 | NUR ---
PATIENT AWAKE AND ALERT. COLOR WNL FOR RACE. RESPIRATIONS EVEN AND UNLABORED. NO NEEDS NOTED. UPDATED ON PLAN OF CARE AND DELAYS IN CARE. WILL CONTINUE TO MONITOR.
--- NOTE | 2018-09-27 19:30 | NUR ---
DIET TRAY GIVEN. SPOUSE AT BEDSIDE. NO OTHER NEEDS NOTED. WILL CONTINUE TO MONITOR.
--- NOTE | 2018-09-27 20:30 | NUR ---
PATIENT AWAKE AND ALERT. NO NEEDS NOTED. SPOUSE AT BEDSIDE. UPDATED ON PLAN OF CARE AND DELAYS IN CARE. WILL CONTINUE TO MONITOR.
--- NOTE | 2018-09-27 21:30 | NUR ---
PATIENT UNCOMFORTABLE IN THE BED. CHANGED THE BEDS IN THE ROOM. GIVEN A GOWN AND NON SLIP SOCKS. PATIENT GIVEN MULTIPLE BLANKETS FOR COMFORT. UPDATED ON PLAN OF CARE AND DELAYS IN CARE. WILL CONTINUE TO MONITOR.
--- NOTE | 2018-09-27 22:30 | NUR ---
PATIENT SLEEPING, RESPIRATIONS EVEN AND UNLABORED. SPOUSE WENT HOME. NO NEEDS NOTED WILL CONTINUE TO MONITOR.
--- NOTE | 2018-09-27 23:15 | NUR ---
PATIENT GIVEN ICE WATER. NO OTHER NEEDS. WILL CONTINUE TO MONITOR.
[2018-09-28 01:09] LABS: CKMB 0.9 U/L (0.0-3.6); CREATINE KINASE 45 UL (21-232)
[2018-09-28 01:11] LABS: TROPONIN-I < 0.017 ng/mL (0.000-0.060)
[2018-09-28 01:34] VITALS: BP 129/68
--- NOTE | 2018-09-28 01:35 | NUR ---
PATIENT APPEARS TO BE SLEEPING. RESPIRATIONS EVEN AND UNLABORED. COLOR WNL FOR RACE. NO DISTRESS NOTED. WILL CONTINUE TO MONITOR.
--- NOTE | 2018-09-28 02:30 | NUR ---
PATIENT APPEARS TO BE SLEEPING. RESPIRATIONS EVEN AND UNLABORED. COLOR WNL FOR RACE. NO DISTRESS NOTED. WILL CONTINUE TO MONITOR.
--- NOTE | 2018-09-28 03:30 | NUR ---
PATIENT APPEARS TO BE RESTING. RESPIRATIONS EVEN AND UNLABORED. NO DISTRESS NOTED. WILL CONTINUE TO MONITOR.
--- NOTE | 2018-09-28 04:25 | NUR ---
PATIENT APPEARS TO BE SLEEPING. RESPIRATIONS EVEN AND UNLABORED. NO NEEDS NOTED. WILL CONTINUE TO MONITOR.
--- NOTE | 2018-09-28 05:17 | NUR ---
PATIENT AWAKE AND WATCHING TELEVISION. NO NEEDS NOTED. UPDATED ON PLAN OF CARE AND DELAYS IN CARE. WILL CONTINUE TO MONITOR.
[2018-09-28 06:33] VITALS: BP 108/88
[2018-09-28 07:24] LABS: CKMB 0.8 U/L (0.0-3.6); CREATINE KINASE 48 UL (21-232); TROPONIN-I < 0.017 ng/mL (0.000-0.060)
--- NOTE | 2018-09-28 09:00 | NUR ---
ALERT AND ORIENTED X4. ARRIVE TO ROOM VIA WHEELCHAIR FROM ER ACCOMPANIED BY SPOUSE. SINUS RHYTHM ON TELEMETRY. RT AC IV FLUSHED. IV PATENT AND SL. VITALS STABLE. ADMISSION COMPLETED IN ER. REFUSE SCDs. CONTINUE PLAN OF CARE AND SAFETY PRECAUTIONS.
[2018-09-28 09:06] VITALS: BP 120/72
[2018-09-28 09:21] VITALS: Ht 185.4 cm; Wt 89.1 kg
--- NOTE | 2018-09-28 10:21 | NUR ---
ALERT AND ORIENTED X4. SITTING UP IN BED. UA COLLECTED AND TAKEN TO LAB. CONSENTS FOR ASSEMBLER SEAT SIGNED ON CHART. SINUS RHYTHM ON TELEMETRY. DENIES ANY NEEDS. CONTINUE PLAN OF CARE AND SAFETY PRECAUTIONS.
[2018-09-28 10:43] LABS: CALC OSMOLALITY 275 mosm/kg (275-300); CALCIUM 8.5 mg/dL (8.5-10.1); CARBON DIOXIDE 22.1 mmol/L (21.0-32.0); CHLORIDE - SERUM 103 mmol/L (98-107); CREATININE - SERUM 0.9 mg/dL (0.6-1.3); GLUCOSE 117 mg/dL (74-106); POTASSIUM - SERUM 3.5 mmol/L (3.5-5.1); SODIUM 138 mmol/L (136-145); UREA NITROGEN 9 mg/dL (7-18); eGFR NON AFRICAN AMERICAN 89 mL/min (90-120)
[2018-09-28 11:31] LABS: BASOPHILS 0.1 % (0-2); EOSINOPHILS 3.2 % (0-7); HEMATOCRIT 41.5 % (42.0-54.0); HEMOGLOBIN 14.4 g/dL (13.5-17.5); IMMATURE GRANULOCYTES 0.3 % (0-5); LYMPHOCYTES 22.4 % (15-50); MCH 33.5 pg (26.0-34.0); MCHC 34.7 g/dL (31.0-37.0); MCV 96.5 fL (80.0-100.0); MEAN PLATELET VOLUME 9.4 fL (7.4-10.4); MONOCYTES 8.4 % (2-11); NEUTROPHILS 65.6 % (40-80); PLATELET COUNT 140 10x3/uL (130-400); RDW 12.7 % (11.5-14.5); WBC 7.5 10x3/uL (4.8-10.8)
[2018-09-28 11:55] LABS: APPEARANCE HAZY (CLEAR); BILIRUBIN NEGATIVE (NEGATIVE); COLOR YELLOW (YELLOW); GLUCOSE NEGATIVE (NEGATIVE); KETONE SMALL mg/dL (NEGATIVE); NITRITE NEGATIVE (NEGATIVE); PROTEIN NEGATIVE (NEGATIVE); SPECIFIC GRAVITY 1.015 (1.005-1.020); UROBILINOGEN NORMAL (NORMAL)
[2018-09-28 11:56] LABS: BACTERIA FEW /hpf (NONE SEEN); EPITHELIAL CELLS 0-5 /hpf (0-5); MUCUS <1+ /lpf (NONE SEEN); RED CELLS - URINE 0-5 /hpf (0-5); WHITE CELLS - URINE OCC /hpf (0-5)
[2018-09-28 13:06] VITALS: BP 127/66
--- NOTE | 2018-09-28 17:01 | NUR ---
ARRIVE BACK TO ROOM VIA BED FROM CATHLAB. FAMILY AT BEDSIDE. BP-101/62, HR-62, O2 SAT 97% RA. TR BAND RT WRIST CLEAN DRY INTACT. FREE FROM HEMATOMA. FREE FROM BLEEDING. DENIES ANY NEEDS. CONTINUE PLAN OF CARE. SINUS RHYTHM ON TELEMETRY.
[2018-09-28 22:27] VITALS: BP 112/61
[2018-09-29 02:16] VITALS: BP 100/56
[2018-09-29 05:20] LABS: BASOPHILS 0.2 % (0-2); EOSINOPHILS 4.5 % (0-7); HEMATOCRIT 38.7 % (42.0-54.0); HEMOGLOBIN 13.2 g/dL (13.5-17.5); LYMPHOCYTES 25.6 % (15-50); MCH 33.4 pg (26.0-34.0); MCHC 34.1 g/dL (31.0-37.0); MEAN PLATELET VOLUME 9.3 fL (7.4-10.4); MONOCYTES 9.4 % (2-11); NEUTROPHILS 60.3 % (40-80); RBC 3.95 10x6/uL (4.20-6.10)
[2018-09-29 05:31] LABS: PLATELET COUNT 103 10x3/uL (130-400); WBC 5.1 10x3/uL (4.8-10.8)
[2018-09-29 05:44] VITALS: BP 123/74
[2018-09-29 05:44] LABS: ALBUMIN 2.9 g/dL (3.4-5.0); ALKALINE PHOSPHATASE 83 U/L (46-116); ALT (SGPT) 21 U/L (10-68); BILIRUBIN - TOTAL 0.78 mg/dL (0.2-1.3); CALC OSMOLALITY 279 mosm/kg (275-300); CALCIUM 7.9 mg/dL (8.5-10.1); CARBON DIOXIDE 25.1 mmol/L (21.0-32.0); CHLORIDE - SERUM 105 mmol/L (98-107); CREATININE - SERUM 0.9 mg/dL (0.6-1.3); GLUCOSE 108 mg/dL (74-106); MAGNESIUM - SERUM 1.6 mg/dL (1.8-2.4); POTASSIUM - SERUM 3.4 mmol/L (3.5-5.1); PROTEIN - SERUM 6.1 g/dL (6.4-8.2); SODIUM 141 mmol/L (136-145); UREA NITROGEN 8 mg/dL (7-18); eGFR NON AFRICAN AMERICAN 89 mL/min (90-120)
--- NOTE | 2018-09-29 07:10 | NUR ---
REPORT RECIEVED FROM FOREST SUPERVISOR. PATIENT LAYING IN BED ON BACK WITH EYES CLOSED AND BREATHING EVENLY. VS GOOD. WILL CONTINUE WITH PLAN OF CARE. SR UP X 2 BED IN LOW POSITON AND CALL LIGHT IN REACH.
[2018-09-29 07:47] VITALS: BP 121/68
--- NOTE | 2018-09-29 09:30 | NUR ---
PATIENT SITTING UP IN BED . AT BEDSIDE. PATIENT UP TO SHOWER. BED CHANGED. PATIENT VS ARE GOOD. DENIES ANY PAIN OR NEEDS. WILL CONTINUE TO MONITOR.
[2018-09-29 11:26] VITALS: BP 138/72
--- NOTE | 2018-09-29 13:30 | NUR ---
PATIENT STABLE AND UNCHANGED.WILL CONTINUE TO MONITOR.
--- NOTE | 2018-09-29 16:07 | NUR ---
DISCHARGE ORDERS RECIEVED. PATIENT IS STABLE . VS ARE GOOD. NO SIGNS OF BLEEDING, BRUISING OR HEMATOMA. PATIENT DENIES ANY NEEDS OR PAIN. IV DC/D W/O DIFFICULTY. DISCHARGE INSTRUCTIONS GIVEN TO PATIENT VERBALLY AND WRIITEN. PATIENT VERBALIZED UNDERSTANDING AND SIGNED PAPERWORK. PATIENT TO FRONT DOOR OF HOSPITAL VIA AND HOSPITAL PERSONNEL. DC TO PRIVATE VEHICLE TO HOME FOR SELF CARE. FAMILY MEMBER DRIVING PATIENT HOME.
--- NOTE | 2018-09-30 09:37 | MORECARE ---
CASE MANAGEMENT DISCHARGE SUMMARY PATIENT: LISA MASTERSON H UNIT: [id number] ADM DATE: 09/27/18 AGE: 68 : [birth year] SEX: M ROOM/BED: D.2115 AUTHOR: CHAIM RAMOS PHYSICIAN: REFERRING PHYSICIAN: CHEIKH ASTORGA MD DATE OF SERVICE: 09/30/18 Discharge Plan Patient Name: LISA MASTERSON [facility] 1950 Planned Disposition: Home Anticipated Discharge Date: 09/29/18 Discharge Date: 09/29/2018 Expected LOS: 2 Initial Reviewer: [email or web address] Initial Review Date: 09/30/2018 Generated: 09/30/18 10:37 am Patient Name: LISA MASTERSON Page [id number] at 0937 All edits/amendments must be made on the electronic document DICTATION DATE: 09/30/18935 BURR GRINDER: CHIARA 09/30/18935 RPT#: [id number] DC DATE:09/29/18 STATUS: DIS IN [facility] [address] [place] [address] END OF REPORT
--- NOTE | 2018-10-05 11:18 | EC ---
PATIENT:LISA MASTERSON DATE OF SERVICE: 09/27/18 SEX: M MEDICAL RECORD: [id number] DATE OF : [birth year] LOCATION:D.M2 D.211 AGE OF PATIENT: 68 ADMISSION DATE: 09/27/18 REFERRING PHYSICIAN: INTERPRETING PHYSICIAN: RONNI ODOM MD ECHOCARDIOGRAM REPORT ECHO CHARGES 4 ECHO COMPLETE Date: 09/28/18 CLINICAL DIAGNOSIS: CHEST PAIN, NEART SYNCOPE ECHOCARDIOGRAPHIC MEASUREMENTS (adult normal given) AC root (d.<3.7cm) 3.0 cm LV Septum d (<1.2 cm> 1.2 cm Valve Excursion 1.3 cm LV Septum (systole) 1.4 cm Left Atria (s.<4.0cm> 3.3 cm LVPW d(<1.2cm) 1.3 cm RV (d.<2.3cm) 3.9 cm LVPW (sytole) 1.3 cm LV diastole(<5.6CM) 5.1 cm MV E-F(>70mm/sec) cm LV systole 3.8 cm LVOT Diameter 2.2 cm MV exc.(>10mm) 1.4 cm Est.ejection fraction (50-75%) % DOPPLER: LVIT cm/sec A 74.0 cm/sec E 64.0 cm/sec LA cm/sec RVSP 18 mmHg LVOT 107 cm/sec AOP1/2T m/s Asc. Ao 134 cm/sec RVOT 92 cm/sec RA cm/sec PA 131 cm/sec AV Gradient Peak 7.14 mmHg AV Mean 4.23 mmHg AV Area 2.3 cm MV Gradient Peak 3.11 mmHg MV Mean 1.22 mmHg MV Area cm COMMENTS: Grain Broker And Market Operator: Vanesa MARTIN Welder Oxyhydrogen: 1 Dr. Odom TAPE# PACS Pericardial Effusion N DATE OF SERVICE: 09/28/2018 ECHOCARDIOGRAM DATE OF SERVICE: 09/28/2018 FINDINGS: 1. Left ventricular chamber size is within normal limits. Left ventricular systolic function is normal. Overall ejection fraction estimated at 55%. 2. Left atrium is within normal limits at 3.9 cm. Right atrium and right ECHOCARDIOGRAM REPORT [id number] LISA MASTERSON ventricular chamber sizes are mildly dilated. 3. Valvular structures have normal structure and motion. 4. Doppler interrogation reveals no significant valvular insufficiency or stenosis. 5. No evidence of pericardial effusion or left ventricular thrombus. TRANSINT:[id number] Voice Confirmation ID: [id number] DOCUMENT ID: [id number] RONNI ODOM MD at 1118 CC: [id number] DICTATION DATE: 09/28/18 1436 CLEARANCE COORDINATOR: 09/28/18 1544 DIS IN 09/29/18 [place] [id number] [place] [id number]
--- NOTE | 2018-10-05 11:18 | OP ---
PATIENT NAME: LISA MASTERSON MEDICAL RECORD: [id number] :[birth year] LOCATION:D.M2 D.2119 ADMISSION DATE:09/27/18 SURGEON: RONNI FRASER MD DATE OF OPERATION: 09/28/2018 PROCEDURES: 1. Left heart catheterization. 2. Selective coronary angiography. 3. Left ventriculogram. INDICATION: Chest pain, angina, coronary artery disease, hypertension, hyperlipidemia, near syncope. PROCEDURE IN DETAIL: After informed consent was obtained and after a detailed description of the risks, benefits as well as alternative therapies, the patient elected to proceed with angiogram and heart catheterization. The right radial area was prepped and draped in normal sterile fashion. Right radial artery was cannulated via modified Seldinger technique with placement of 5-Wallisian sheath. All catheters exchanged through this sheath. FINDINGS: The left ventriculogram was performed in standard 30-degree MOSER view, reveals good cardiac wall motion throughout all segments. Overall ejection fraction estimated 60%. SELECTIVE CORONARY ANGIOGRAPHY: 1. Left main showed no significant angiographic disease. 2. Left anterior descending has previously placed stents in the LAD and diagonal. These are widely patent with no significant restenosis. No disease elsewise throughout the LAD or its branches. 3. Left circumflex has moderate irregularities, but no flow-limiting stenosis. 4. Right coronary artery has moderate irregularities, but no flow-limiting stenosis. OVERALL IMPRESSION: Wide patency of the previously placed stents, no disease elsewise. Continue medical management of the coronary artery disease and cardiac risk factors. TRANSINT:[id number] Voice Confirmation ID: [id number] DOCUMENT ID: [id number] RONNI FRASER MD at 1118 CC: [id number] DICTATION DATE: 09/28/18 1645 FIRE CHIEF: 09/29/18 0030 DIS IN 09/29/18 [place] [id number] [place] [id number]
== END 2018-09-29 16:11 | disposition home or self-care (01) ==
LOC: D.ER 16:07 → D.M2 18:20 → D.EDHOLD 18:20 → OBSVTIME 18:41 → D.M2 09-28 00:18 → D.EDHOLD 09-28 02:00 → D.M2 09-28 02:01 → D.EDHOLD 09-28 02:02 → D.M2 09-28 06:46
PROVIDERS: Emergency Medicine; Family Medicine Adult Medicine; Internal Medicine Interventional Cardiology; ADMIT Family Medicine
DX: I25.119 Atherosclerotic heart disease of native coronary artery with unspecified angina pectoris (principal); I10 Essential (primary) hypertension; E78.5 Hyperlipidemia, unspecified; R55 Syncope and collapse; Z87.891 Personal history of nicotine dependence; K21.9 Gastro-esophageal reflux disease without esophagitis; M19.90 Unspecified osteoarthritis, unspecified site